=== PATIENT | female | born 1970 | race Two or more races ===

== ENCOUNTER 2020-07-21 18:31 | Emergency (ER) | payer OTHER ==
[~2020-07-21] VITALS: Ht 162.6 cm; Wt 84.4 kg
[2020-07-21] MEDS ORDERED: METFORMIN HCL500 M3 PO (18:51)
[2020-07-21] MEDS ORDERED: PRILOSEC OTC20 MG PO (18:51)
== END 2020-07-21 21:04 | disposition home or self-care (01) ==
LOC: ER 18:31
DX: A60.04 Herpesviral vulvovaginitis (principal)